=== PATIENT | female | born 1990 | race Asian ===

== ENCOUNTER 2020-02-18 20:30 | Emergency (ER) | payer OTHER ==
--- NOTE | 2020-02-18 23:13 | EDPHYS ---
Physician Documentation [facility] Name: Uma Bai Age: 29 yrs Sex: Female : 1990 Arrival Date: 02/18/2020 Time: 20:34 Bed 28 Private MD: ED Physician Mao Hurley HPI: 02/17 23:48 This 29 yrs old Female presents to ER via Ambulatory with complaints of Abdominal kb Pain. 23:48 The patient presents with abdominal pain in the lower abdomen. Onset: The kb symptoms/episode began/occurred yesterday. The symptoms do not radiate. Associated signs and symptoms: none. The symptoms are described as intermittent. Modifying factors: The symptoms are alleviated by nothing, the symptoms are aggravated by pressure. Severity of pain: At its worst the pain was mild moderate in the emergency department the pain is unchanged. The patient has not experienced similar symptoms in the past. The patient has not recently seen a physician. Pt reports intermittent lower abd/pelvic pain that started yesterday. This is her first so she wasn't sure if it was normal or not. 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 - Social history:: Smoking status: Patient denies any tobacco usage or history of. ROS: 23:48 Constitutional: Negative for fever, chills, and weight loss, Cardiovascular: Negative kb for chest pain, palpitations, and edema, Respiratory: Negative for shortness of breath, cough, wheezing, and pleuritic chest pain, Back: Negative for injury and pain, : Negative for injury, bleeding, discharge, and swelling, MS/Extremity: Negative for injury and deformity, Skin: Negative for injury, rash, and discoloration, Neuro: Negative for headache, weakness, numbness, tingling, and seizure. 23:48 Abdomen/GI: Positive for abdominal pain, Negative for nausea, vomiting, and diarrhea. Exam: 23:48 Constitutional: This is a well developed, well nourished patient who is awake, alert, kb and in no acute distress. Head/Face: Normocephalic, atraumatic. Chest/axilla: Normal chest wall appearance and motion. Nontender with no deformity. No lesions are appreciated. Cardiovascular: Regular rate and rhythm with a normal S1 and S2. No gallops, murmurs, or rubs. Normal PMI, no JVD. No pulse deficits. Respiratory: Lungs have equal breath sounds bilaterally, clear to auscultation and percussion. No rales, rhonchi or wheezes noted. No increased work of breathing, no retractions or nasal flaring. Abdomen/GI: Soft, non-tender, with normal bowel sounds. No distension or tympany. No guarding or rebound. No evidence of tenderness throughout. Back: No spinal tenderness. No costovertebral tenderness. Full range of motion. Skin: Warm, dry with normal turgor. Normal color with no rashes, no lesions, and no evidence of cellulitis. MS/ Extremity: Pulses equal, no cyanosis. Neurovascular intact. Full, normal range of motion. Neuro: Awake and alert, GCS 15, oriented to person, place, time, and situation. Cranial nerves II-XII grossly intact. Motor strength 5/5 in all extremities. Sensory grossly intact. Cerebellar exam normal. Normal gait. Vital Signs: 20:43 BP 120 / 76; Pulse 76; Resp 15; Temp 98.1(TE); Pulse Ox 98% on R/A; Weight 55.79 kg; ss Height 5 ft. 2 in. (157.48 cm); Pain 0/10; 20:43 Body Mass Index 22.50 (55.79 kg, 157.48 cm) MDM: 22:06 Patient medically screened. kb 23:47 Data reviewed: vital signs, nurses notes. Data interpreted: Pulse oximetry: on room air kb is 98 %. Interpretation: normal. Counseling: I had a detailed discussion with the patient and/or guardian regarding: the historical points, exam findings, and any diagnostic results supporting the discharge/admit diagnosis, lab results, radiology results, the need for outpatient follow up, an OB/Gyne specialist, to return to the emergency department if symptoms worsen or persist or if there are any questions or concerns that arise at home. 02/17 22:20 Order name: Abo/rh Typing; Complete Time: 23:12 kb 02/17 22:20 Order name: Beta hcg kb 02/17 20:49 Order name: Urine Test (obtain specimen); Complete Time: 23:03 kb 02/17 20:49 Order name: US Transvaginal Ob kb 02/17 23:03 Order name: Urine --Ancillary (enter results); Complete Time: 23:14 tt3 02/17 23:03 Order name: Urine Dipstick--Ancillary (enter results); Complete Time: 23:14 tt3 02/17 20:49 Order name: Urine Dipstick-Ancillary (obtain specimen); Complete Time: 23:03 kb Administered Medications: No medications were administered Disposition: 02/18 05:17 Co-signature as Attending Physician, Mao Hurley MD. [email or web address] Disposition: 02/18/20 23:12 Discharged to Home. Impression: Less than 8 weeks gestation of . - Condition is Stable. - Discharge Instructions: First Trimester of , [id number], Abdominal Pain During , [id number]. - Medication Reconciliation Form, Thank You Letter, Antibiotic Education, Prescription Opioid Use form. - Follow up: Emergency Department; When: As needed; Reason: Worsening of condition. Follow up: Private Physician; When: 2 - 3 days; Reason: Recheck today's complaints, Continuance of care, Re-evaluation by your physician. Signatures: Dispatcher [employer] Sandra Johnson, MARGARITO-John DASP-Stephy Davidson RN RN Mao Marquis MD MD [email or web address] Corrections: (The following items were deleted from the chart) 02/17 23:23 23:12 02/18/2020 23:12 Discharged to Home. Impression: Less than 8 weeks gestation of ss . Condition is Stable. Forms are Medication Reconciliation Form, Thank You Letter, Antibiotic Education, Prescription Opioid Use. Follow up: Emergency Department; When: As needed; Reason: Worsening of condition. Follow up: Private Physician; When: 2 - 3 days; Reason: Recheck today's complaints, Continuance of care, Re-evaluation by your physician. kb
--- NOTE | 2020-02-18 23:13 | ER ---
Nurse's Notes [facility] Name: Uma Bai Age: 29 yrs Sex: Female : 1990 Arrival Date: 02/18/2020 Time: 20:34 Bed 28 Private MD: Diagnosis: Less than 8 weeks gestation of Presentation: 02/17 20:43 Chief complaint: Patient states: "I'm 7 weeks and starting yesterday evening, ss I was experiencing pain in my abdomen (pointing to LLQ). It comes in waves. Sometimes it's a sharp pain.". Coronavirus screen: Client denies travel out of the [place] in the last 14 days. Ebola Screen: Patient denies exposure to infectious person. Patient denies travel to an Ebola-affected area in the 21 days before illness onset. Initial Sepsis Screen: Does the patient meet any 2 criteria? No. Patient's initial sepsis screen is negative. Does the patient have a suspected source of infection? No. Patient's initial sepsis screen is negative. Risk Assessment: Do you want to hurt yourself or someone else? Patient reports no desire to harm self or others. Onset of symptoms was February 17, 2020. 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 - Social history:: Smoking status: Patient denies any tobacco usage or history of. Screenin:06 Abuse screen: Denies threats or abuse. Denies injuries from another. Nutritional ss screening: No deficits noted. Tuberculosis screening: Never had TB. Fall Risk None identified. Assessment: 11:15 Reassessment: Patient appears in no apparent distress at this time. Patient and/or ss family updated on plan of care and expected duration. Pain level reassessed. Patient is alert, oriented x 3, equal unlabored respirations, skin warm/dry/pink. Patient denies pain at this time. 20:43 General: Appears in no apparent distress. comfortable, Behavior is calm, cooperative, ss Denies fever, feeling ill, fatigue, chills. Pain: Complains of pain in left lower quadrant Pain currently is 0 out of 10 on a pain scale. at worst was 5 out of 10 on a pain scale. Quality of pain is described as sharp, Pain began 1 day ago. Is intermittent. Neuro: Level of Consciousness is awake, alert, obeys commands, Oriented to person, place, time, situation. Cardiovascular: Capillary refill < 3 seconds is brisk in bilateral fingers. Respiratory: Airway is patent Respiratory effort is even, unlabored, Respiratory pattern is regular, symmetrical. GI: Bowel sounds present X 4 quads. Abd is soft and non tender X 4 quads. Patient currently denies diarrhea, nausea, vomiting. : No signs and/or symptoms were reported regarding the genitourinary system. Denies burning with urination, urinary frequency. EENT:. Derm: Skin is pink, warm \\T\\ dry. normal. Vital Signs: 20:43 BP 120 / 76; Pulse 76; Resp 15; Temp 98.1(TE); Pulse Ox 98% on R/A; Weight 55.79 kg; ss Height 5 ft. 2 in. (157.48 cm); Pain 0/10; 20:43 Body Mass Index 22.50 (55.79 kg, 157.48 cm) ss ED Course: 20:34 Patient arrived in ED. cl3 20:45 Triage completed. ss 20:45 Arm band placed on right wrist. ss 20:48 Sandra Tipton [facility]C [facility] kb 20:48 Mao Hurley MD is Attending Physician. kb 21:37 Patient taken to ultrasound. via wheelchair. is 21:55 US Transvaginal Ob In Process Unspecified. EDMS 21:57 Ultrasound completed. Patient tolerated well. Patient taken to [facility], Patient moved is back from ultrasound. 22:06 Patient has correct armband on for positive identification. Bed in low position. Call ss light in reach. 22:26 Stephy Neff, KAILEY is Primary Nurse. ss 23:23 No provider procedures requiring assistance completed. Patient did not have IV access ss during this emergency room visit. Administered Medications: No medications were administered Outcome: 23:12 Discharge ordered by . kb 23:23 Discharged to home ambulatory. ss 23:23 Condition: good 23:23 Discharge instructions given to patient, family, Instructed on discharge instructions, follow up and referral plans. Demonstrated understanding of instructions, follow-up care. 23:23 Patient left the ED. ss Signatures: Dispatcher [employer] EDSandra Gamez, MARGARITO-John PIMENTEL-Stephy Davidson, KAILEY RN ss Agustín Harkins cl3 Lara, Beth is
[2020-02-18 23:14] LABS: Urine Blood NEGATIVE (NEG); Urine Glucose NEGATIVE (NEG); Urine Protein NEGATIVE (NEG); Urine Specific Gravity >1.030 (1.005-1.030)
[2020-02-18 23:28] VITALS: BP 120/76; TEMP 98.1; O2SAT 98
--- NOTE | 2020-02-19 08:37 | RAD REPORT ---
EXAM DESCRIPTION: US - Transvaginal OB - 02/18/2020 9:55 pm CLINICAL HISTORY: Abd cramping, ;Vaginal bleeding COMPARISON: No comparisons FINDINGS: A single gestational sac is seen within the uterus. The shape of the sac is within normal limits for gestational age. Within the sac is a single pole with crown-rump length of 11 mm, co rrelating to estimated gestational age of 7 weeks 2 days. Estimated date of delivery is 10/04/2020. Heart rate is 144 BPM. The placenta is not yet developed due to early gestational age. The maternal adnexa are within normal limits. Both ovaries were obscured by bowel gas. IMPRESSION: Single live early intrauterine gestation with estimated gestational age of 7 weeks 2 day s, JUAN 10/04/2020. Both ovaries were obscured by bowel gas.
== END 2020-02-18 23:23 | disposition home or self-care (01) ==
LOC: ER 20:30
DX: O26.891 Other specified pregnancy related conditions, first trimester (principal); Z3A.01 Less than 8 weeks gestation of pregnancy
CPT/HCPCS: 36415; 76817; 81003; 81025; 84702; 86900; 86901; 99284